=== PATIENT | female | born 1965 | race Two or more races ===

== ENCOUNTER 2018-09-16 01:56 | Inpatient (IN) | payer MEDICAID ==
[~2018-09-16] VITALS: Ht 160 cm; Wt 67.1 kg
[2018-09-16 01:56] VITALS: BP 138/97
[2018-09-16] MEDS ORDERED: NKM (01:58)
[2018-09-16] MEDS ORDERED: Sodium Chloride 500ML 500 ML IV ONE (02:06)
[2018-09-16] MEDS: Ipratropium 0.02% Inh Soln 2.5ml UD HHN SCH ×3 (02:14→03:11)
[2018-09-16] MEDS: Albuterol ud Inhalation HHN SCH ×3 (02:14→03:11)
[2018-09-16] MEDS ORDERED: Solu-MEDROL 125mg Inj IVP ONE (02:15)
[2018-09-16 02:29] LABS: BASOPHILS % (AUTO) 0.9 % (0.0-2.0); EOSINOPHILS % (AUTO) 1.3 % (0.0-3.0); HEMATOCRIT 36.2 % (37.0-47.0); HEMOGLOBIN 11.9 G/DL (12.0-16.0); LYMPHOCYTES % (AUTO) 18.5 % (20.0-45.0); MEAN CORPUSCULAR VOLUME 92 FL (80-99); MONOCYTES % (AUTO) 8.1 % (1.0-10.0); NEUTROPHILS % (AUTO) 71.2 % (45.0-75.0); PLATELET COUNT 337 K/UL (150-450); RED BLOOD COUNT 3.93 M/UL (4.20-5.40); RED CELL DISTRIBUTION WIDTH 13.4 % (11.6-14.8); WHITE BLOOD COUNT 6.4 K/UL (4.8-10.8)
[2018-09-16 02:38] LABS: ANION GAP 5 mmol/L (5-15); BLOOD UREA NITROGEN 15 mg/dL (7-18); CALCIUM 8.3 MG/DL (8.5-10.1); CARBON DIOXIDE 27 MMOL/L (21-32); CHLORIDE 109 MMOL/L (98-107); CREATININE 0.7 MG/DL (0.55-1.30); POTASSIUM 4.1 MMOL/L (3.5-5.1); SODIUM 141 MMOL/L (136-145)
[2018-09-16 02:43] LABS: APPEARANCE,URINE SLIGHTLY CLOUDY; BILIRUBIN, URINE NEGATIVE (NEGATIVE); GLUCOSE, URINE (UA) NEGATIVE (NEGATIVE); KETONES,URINE NEGATIVE (NEGATIVE); LEUKOCYTE ESTERASE ,URINE 3+ (NEGATIVE); NITRITE,URINE NEGATIVE (NEGATIVE); PH,URINE 5 (4.5-8.0); PROTEIN,URINE 2+ (NEGATIVE); UROBILINOGEN,URINE 1 MG/DL (0.0-1.0)
[2018-09-16 02:50] LABS: ALANINE AMINOTRANSFERASE 51 U/L (12-78); ALBUMIN 2.2 G/DL (3.4-5.0); ALBUMIN/GLOBULIN RATIO 0.6 (1.0-2.7); ALKALINE PHOSPHATASE 106 U/L (46-116); ASPARTATE AMINO TRANSFERASE 38 U/L (15-37); BILIRUBIN,TOTAL 0.2 MG/DL (0.2-1.0)
[2018-09-16 02:51] LABS: COLOR,URINE YELLOW
[2018-09-16] MEDS ORDERED: Ipratropium 0.02% Inh Soln 2.5ml UD HHN ONE (03:15)
[2018-09-16] MEDS ORDERED: Azithromycin 500 MG in NS 275 ML IV ONE (03:15)
[2018-09-16] MEDS ORDERED: cefTRIAXone 1 GM in NS 55 ML IVPB ONE (03:15)
[2018-09-16] MEDS ORDERED: Albuterol ud Inhalation HHN ONE (03:15)
[2018-09-16] MEDS ORDERED: SulfASALAZine 500MG tab ONE (04:10)
[2018-09-16] MEDS ORDERED: Azithromycin 250mg tab ORAL ONE (04:15)
[2018-09-16] MEDS ORDERED: metroNIDAZOLE 500mg tab ORAL ONE (04:30)
--- NOTE | 2018-09-16 04:39 | Emergency Room Report ---
History of Present Illness General Chief Complaint: Upper Respiratory Illness Source: Patient, EMS Present Illness HPI 53-year-old female presents ED for evaluation. Patient brought in by EMS for cough 2 weeks. Productive. Denies chest pain. Feel short of breath. [place] [address] Patient is a poor historian. Unable to elaborate her medical history. Denies smoking. Denies drug use. Unclear influenza status. No other aggravating relieving factors. Denies any other associated symptoms Allergies: Coded Allergies: No Known Allergies (Unverified , 09/16/18) Patient History Past Medical History: asthma, psych hx Past Surgical History: none Pertinent Family History: none Social History: Denies: smoking, alcohol use, drug use Last Menstrual Period: 5 years ago Now: No Immunizations: UTD Reviewed Nursing Documentation: PMH: Agreed; PSxH: Agreed Nursing Documentation-PMH Hx Asthma: Yes History Of Psychiatric Problem: Yes - schizophrenia Review of Systems All Other Systems: limited Physical Exam Vital Signs Date Time Temp Pulse Resp B/P (MAP) Pulse Ox O2 Delivery O2 Flow Rate FiO2 09/16/18 01:52 98.2 98 18 144/98 99 Room Air 09/16/18 01:56 10.0 09/16/18 02:13 100 Sp02 EP Interpretation: reviewed, normal General Appearance: alert, GCS 15, non-toxic, mild distress Head: normocephalic Eyes: bilateral eye normal inspection, bilateral eye PERRL ENT: normal ENT inspection Neck: full range of motion Respiratory: crackles, wheezing Cardiovascular #1: regular rate, rhythm, no edema Gastrointestinal: normal inspection Rectal: deferred Genitourinary: no CVA tenderness Musculoskeletal: normal inspection Neurologic: alert, oriented x3, responsive, motor strength/tone normal, sensory intact, speech normal Psychiatric: normal inspection Skin: normal inspection Lymphatic: normal inspection Medical Decision Making Diagnostic Impression: Primary Impression: CHF (congestive heart failure) Qualified Codes: I50.9 - Heart failure, unspecified Additional Impression: Pneumonia Qualified Codes: J18.9 - Pneumonia, unspecified organism ER Course Hospital Course 53-year-old F presenting to ED with respiratory distress, cough and crackles Differential diagnoses include: Pneumonia, CHF exacerbation, pneumothorax, fluid overload Clinical course Patient placed on stretcher. On coach wirer with hypoxia on room air and tachycardia. After initial history and physical, I ordered nebulizer treatments. I ordered labs, IV fluids, EKG, chest x-ray, blood cultures, UA. Patient placed on nasal cannula with O2 saturation improving Labs -no leukocytosis, hemoglobin/hematocrit stable, electrolytes ok, trop 0.195 , BNP 4967. UA+ bacteria + trich CXR - L upper lobe infiltrate EKG - NSR, no acute ishcemic changes interpreted by me Breathing improved after breathing treatments. Given antibiotics. Given Lasix Case discussed with Dr. Avina and he agreed to the patient to his service for further care and support I feel this is a highly complex case requiring extensive working including EKG/ Rhythm strip, Xray/CT/US, Blood/urine lab work, repeat exams while in ED, and administration of strong opiates/narcotics for pain control, admission to hospital or close patient follow up. Diagnosis - pneumonia, CHF Patient admitted to telemetry in serious condition Labs Test 09/16/18 02:14 09/16/18 02:35 09/16/18 03:04 White Blood Count 6.4 K/UL (4.8-10.8) Red Blood Count 3.93 M/UL (4.20-5.40) Hemoglobin 11.9 G/DL (12.0-16.0) Hematocrit 36.2 % (37.0-47.0) Mean Corpuscular Volume 92 FL (80-99) Mean Corpuscular Hemoglobin 30.1 PG (27.0-31.0) Mean Corpuscular Hemoglobin Concent 32.8 G/DL (32.0-36.0) Red Cell Distribution Width 13.4 % (11.6-14.8) Platelet Count 337 K/UL (150-450) Mean Platelet Volume 6.4 FL (6.5-10.1) Neutrophils (%) (Auto) 71.2 % (45.0-75.0) Lymphocytes (%) (Auto) 18.5 % (20.0-45.0) Monocytes (%) (Auto) 8.1 % (1.0-10.0) Eosinophils (%) (Auto) 1.3 % (0.0-3.0) Basophils (%) (Auto) 0.9 % (0.0-2.0) Sodium Level 141 MMOL/L (136-145) Potassium Level 4.1 MMOL/L (3.5-5.1) Chloride Level 109 MMOL/L (98-107) Carbon Dioxide Level 27 MMOL/L (21-32) Anion Gap 5 mmol/L (5-15) Blood Urea Nitrogen 15 mg/dL (7-18) Creatinine 0.7 MG/DL (0.55-1.30) Estimat Glomerular Filtration Rate > 60 mL/min (>60) Glucose Level 113 MG/DL (74-106) Calcium Level 8.3 MG/DL (8.5-10.1) Total Bilirubin 0.2 MG/DL (0.2-1.0) Aspartate Amino Transf (AST/SGOT) 38 U/L (15-37) Alanine Aminotransferase (ALT/SGPT) 51 U/L (12-78) Alkaline Phosphatase 106 U/L (46-116) Troponin I 0.195 ng/mL (0.000-0.056) Pro-B-Type Natriuretic Peptide 4967 pg/mL (0-125) Total Protein 6.0 G/DL (6.4-8.2) Albumin 2.2 G/DL (3.4-5.0) Globulin 3.8 g/dL Albumin/Globulin Ratio 0.6 (1.0-2.7) Urine Color Yellow Urine Appearance Slightly cloudy Urine pH 5 (4.5-8.0) Urine Specific [place] 1.025 (1.005-1.035) Urine Protein 2+ (NEGATIVE) Urine Glucose (UA) Negative (NEGATIVE) Urine Ketones Negative (NEGATIVE) Urine Blood 2+ (NEGATIVE) Urine Nitrite Negative (NEGATIVE) Urine Bilirubin Negative (NEGATIVE) Urine Urobilinogen 1 MG/DL (0.0-1.0) Urine Leukocyte Esterase 3+ (NEGATIVE) Urine RBC 2-4 /HPF (0 - 2) Urine WBC 15-20 /HPF (0 - 2) Urine Squamous Epithelial Cells Moderate /LPF (NONE/OCC) Urine Calcium Oxalate Crystals Occasional /LPF (NONE) Urine Bacteria Moderate /HPF (NONE) Urine Trichomonas Few /HPF (NONE) Arterial Blood pH 7.360 (7.350-7.450) Arterial Blood Partial Pressure CO2 45.3 mmHg (35.0-45.0) Arterial Blood Partial Pressure O2 129.0 mmHg (75.0-100.0) Arterial Blood HCO3 25.0 mmol/L (22.0-26.0) Arterial Blood Oxygen Saturation 98.5 % (95-100) Arterial Blood Base Excess -0.7 (-2-2) Master Test Positive EKG Diagnostic Results Rate: normal Rhythm: NSR ST Segments: no acute changes ASA given to the pt in ED: No Rhythm Strip Diag. Results EP Interpretation: yes Rhythm: NSR, no PVC's, no ectopy Chest X-Ray Diagnostic Results Chest X-Ray Diagnostic Results : Chest X-Ray Ordered: Yes # of Views/Limited/Complete: 1 View Indication: Shortness of Breath EP Interpretation: Yes Interpretation: no effusion, no pneumothorax, other - VRAUN infiltrate Impression: Other - pneumonia Electronically Signed by: Electronically signed by Oskar Burns MD Last Vital Signs Date Time Temp Pulse Resp B/P (MAP) Pulse Ox O2 Delivery O2 Flow Rate FiO2 09/16/18 04:25 118 20 100 Room Air 21 09/16/18 02:14 15.0 09/16/18 01:56 98.2 138/97 Status: improved Disposition: ADMITTED INPATIENT Condition: Serious Referrals: [facility],REFERRING (PCP) Oskar Burns MD Sep 16, 2018 04:39
[2018-09-16] MEDS ORDERED: Albuterol/Ipratropium 3ml neb HHN PRN (07:45)
[2018-09-16] MEDS ORDERED: Morphine Sulfate 4mg/ml Inj (IV/IM USE ONLY) IVP PRN (07:45)
[2018-09-16 08:00] VITALS: BP 120/74
[2018-09-16] MEDS: Metoprolol 25mg tab ORAL SCH ×2 (09:09→20:47)
[2018-09-16] MEDS: Heparin 5000 units/ml inj SUBQ SCH ×2 (09:16→20:48)
--- NOTE | 2018-09-16 10:04 | History and Physical ---
History of Present Illness General Date patient seen: Sep 16, 2018 Time patient seen: 09:52 Reason for Hospitalization: Upper Respiratory Illness Present Illness HPI 53-year-old female presents for coughs for around 2 weeks. States she has productive coughs, denies any chest pain but has mild shortness of breath. Patient has h/o schizophrenia, states she follows with a psychiatrist but does not take any medications. Patient currently speaking tangentially and very difficult to redirect patient continuously. Patient does not take any medications at home Patient is a very poor historian likely due to psychiatric illness Social hx: reviewed, denies smoking, drug use or alcohol use fam hx reviewed, denies any sig past fam hx that she is aware of code status reviewed, would like to remain full code Allergies: Coded Allergies: No Known Allergies (Unverified , 09/16/18) Medication History Scheduled No Known Medications* (NKM - No Known Medications*), 0 ., (Reported) Patient History History Provided By: Patient Healthcare decision maker Resuscitation status Full Code Advanced Directive on File Physical Exam General Appearance: no apparent distress Lines, tubes and drains: peripheral HEENT: normocephalic, atraumatic, anicteric Neck: non-tender, normal alignment Respiratory/Chest: chest wall non-tender, lungs clear, normal breath sounds, no respiratory distress, no accessory muscle use Cardiovascular/Chest: normal peripheral pulses, normal rate, regular rhythm Abdomen: normal bowel sounds, non tender, soft, no organomegaly, no mass Extremities: normal range of motion, non-tender, normal inspection, no calf tenderness Skin Exam: normal pigmentation, warm/dry 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, no motor/sensory deficits, alert, oriented x 3 Last 24 Hour Vital Signs Date Time Temp Pulse Resp B/P (MAP) Pulse Ox O2 Delivery O2 Flow Rate FiO2 09/16/18 09:09 91 120/74 09/16/18 08:00 98.1 91 18 120/74 (89) 98 09/16/18 05:33 102 09/16/18 05:22 Room Air 09/16/18 05:10 98.2 100 20 135/91 99 Nasal Cannula 2.0 09/16/18 04:25 118 20 100 Room Air 21 09/16/18 04:14 110 20 99 Room Air 21 09/16/18 03:13 114 20 100 Room Air 21 09/16/18 03:12 112 20 100 Room Air 21 09/16/18 02:48 110 21 100 Room Air 09/16/18 02:31 110 24 100 Room Air 21 09/16/18 02:29 105 24 100 Room Air 09/16/18 02:14 98 21 100 Non-Rebreather 15.0 100 09/16/18 02:13 98 21 Non-Rebreather 15.0 100 09/16/18 01:56 98.2 101 18 138/97 96 Non-Rebreather 10.0 09/16/18 01:56 101 18 Non-Rebreather 10.0 09/16/18 01:52 98.2 98 18 144/98 99 Room Air Intake and Output 09/15/18 09/16/18 18:59 06:59 Intake Total 1555 ml Balance 1555 ml IV Total 1555 ml Laboratory Tests Test 09/16/18 02:14 09/16/18 02:35 09/16/18 03:04 White Blood Count 6.4 K/UL (4.8-10.8) Red Blood Count 3.93 M/UL (4.20-5.40) L Hemoglobin 11.9 G/DL (12.0-16.0) L Hematocrit 36.2 % (37.0-47.0) L Mean Corpuscular Volume 92 FL (80-99) Mean Corpuscular Hemoglobin 30.1 PG (27.0-31.0) Mean Corpuscular Hemoglobin Concent 32.8 G/DL (32.0-36.0) Red Cell Distribution Width 13.4 % (11.6-14.8) Platelet Count 337 K/UL (150-450) Mean Platelet Volume 6.4 FL (6.5-10.1) L Neutrophils (%) (Auto) 71.2 % (45.0-75.0) Lymphocytes (%) (Auto) 18.5 % (20.0-45.0) L Monocytes (%) (Auto) 8.1 % (1.0-10.0) Eosinophils (%) (Auto) 1.3 % (0.0-3.0) Basophils (%) (Auto) 0.9 % (0.0-2.0) Sodium Level 141 MMOL/L (136-145) Potassium Level 4.1 MMOL/L (3.5-5.1) Chloride Level 109 MMOL/L (98-107) H Carbon Dioxide Level 27 MMOL/L (21-32) Anion Gap 5 mmol/L (5-15) Blood Urea Nitrogen 15 mg/dL (7-18) Creatinine 0.7 MG/DL (0.55-1.30) Estimat Glomerular Filtration Rate > 60 mL/min (>60) Glucose Level 113 MG/DL (74-106) H Calcium Level 8.3 MG/DL (8.5-10.1) L Total Bilirubin 0.2 MG/DL (0.2-1.0) Aspartate Amino Transf (AST/SGOT) 38 U/L (15-37) H Alanine Aminotransferase (ALT/SGPT) 51 U/L (12-78) Alkaline Phosphatase 106 U/L (46-116) Troponin I 0.195 ng/mL (0.000-0.056) Pro-B-Type Natriuretic Peptide 4967 pg/mL (0-125) H Total Protein 6.0 G/DL (6.4-8.2) L Albumin 2.2 G/DL (3.4-5.0) L Globulin 3.8 g/dL Albumin/Globulin Ratio 0.6 (1.0-2.7) L Urine Color Yellow Urine Appearance Slightly cloudy Urine pH 5 (4.5-8.0) Urine Specific [place] 1.025 (1.005-1.035) Urine Protein 2+ (NEGATIVE) H Urine Glucose (UA) Negative (NEGATIVE) Urine Ketones Negative (NEGATIVE) Urine Blood 2+ (NEGATIVE) H Urine Nitrite Negative (NEGATIVE) Urine Bilirubin Negative (NEGATIVE) Urine Urobilinogen 1 MG/DL (0.0-1.0) H Urine Leukocyte Esterase 3+ (NEGATIVE) H Urine RBC 2-4 /HPF (0 - 2) H Urine WBC 15-20 /HPF (0 - 2) H Urine Squamous Epithelial Cells Moderate /LPF (NONE/OCC) H Urine Calcium Oxalate Crystals Occasional /LPF (NONE) Urine Bacteria Moderate /HPF (NONE) H Urine Trichomonas Few /HPF (NONE) H Arterial Blood pH 7.360 (7.350-7.450) Arterial Blood Partial Pressure CO2 45.3 mmHg (35.0-45.0) H Arterial Blood Partial Pressure O2 129.0 mmHg (75.0-100.0) H Arterial Blood HCO3 25.0 mmol/L (22.0-26.0) Arterial Blood Oxygen Saturation 98.5 % (95-100) Arterial Blood Base Excess -0.7 (-2-2) Master Test Positive Height (Feet): 5 Height (Inches): 3.00 Weight (Pounds): 148 Medications Current Medications Medications (Trade) Dose Ordered Sig/Elier Route PRN Reason Start Time Stop Time Status Last Admin Dose Admin Albuterol/ Ipratropium (Albuterol/ Ipratropium) 3 ml Q6H PRN HHN Shortness of Breath 09/16/18 07:45 09/21/18 07:44 Aspirin (ASA) 325 mg DAILY ORAL 09/16/18 09:00 10/16/18 08:59 09/16/18 09:09 Furosemide (Lasix) 40 mg Q8H IV 09/16/18 08:00 10/16/18 07:59 09/16/18 09:09 Heparin Sodium (Porcine) (Heparin 5000 units/ml) 5,000 units EVERY 12 HOURS SUBQ 09/16/18 09:00 10/16/18 08:59 09/16/18 09:16 Levofloxacin 150 ml @ 100 mls/hr Q24H IVPB 09/16/18 09:00 09/23/18 08:59 09/16/18 09:09 Metoprolol Tartrate (Lopressor) 25 mg Q12HR ORAL 09/16/18 09:00 10/16/18 08:59 09/16/18 09:09 Morphine Sulfate (Morphine Sulfate) 1 mg Q6H PRN IVP For Pain 09/16/18 07:45 09/23/18 07:44 Sodium Chloride 1,000 ml @ 100 mls/hr Q10H IV 09/16/18 03:15 10/16/18 03:14 09/16/18 03:28 Assessment/Plan Problem List: (1) NSTEMI (non-ST elevated myocardial infarction) ICD Codes: I21.4 - Non-ST elevation (NSTEMI) myocardial infarction SNOMED: 165469904 (2) CAP (community acquired pneumonia) ICD Codes: J18.9 - Pneumonia, unspecified organism SNOMED: 130924653 (3) CHF (congestive heart failure) ICD Codes: I50.9 - Heart failure, unspecified SNOMED: 28372313 Qualifiers: Qualified Codes: I50.9 - Heart failure, unspecified (4) Acute exacerbation of CHF (congestive heart failure) ICD Codes: I50.9 - Heart failure, unspecified SNOMED: 65013128 (5) SOB (shortness of breath) ICD Codes: R06.02 - Shortness of breath SNOMED: 015725565 (6) Schizophrenia ICD Codes: F20.9 - Schizophrenia, unspecified SNOMED: 64378837 Status: stable Assessment/Plan Shortness of breath Community aquired Pneumonia - cxr reviewed, VARUN infiltrate noted - started on lvq 750 IV qday - bcx sent - breathing tx - improving Acute systolic CHF exacerbation - likely systolic type - TTE pending - trop x 1 elevated at 0.196 - trend trop x 3 - elevated bnp in 4000s - cards consulted - iv lasix - duonebs NSTEMI - type II nstemi, due to demand ischemia from chf exacerbation and cap - continue caridioprotective meds - asa, statin, bb, lasix - concerns for drug abuse, pending UDS Schizophrenia - not on any medications - psych consult diet: cardiac DVT Prophylaxis: SCD, HSQ Code Status: Full Hospital Classification Declaration: Based on this initial evaluation, and depending on the patient's clinical course, I anticipate that this patient will require hospitalization for [] days for [] and close respiratory/hemodynamic monitoring. Disposition: Once the patient is stable to leave the hospital, I anticipate the patient will likely be discharged to the following environment: home with HH vs SNF I spent [] minutes on this patient's case, and [] minutes were dedicated to counseling and/or care coordination. Discussed with patient/family, nursing staff, SW/CM, [] regarding clinical status, treatment course, and disposition planning. Time of note may not reflect time of encounter. Silvana Gill MD Sep 16, 2018 10:04
[2018-09-16 12:00] VITALS: BP 131/84
[2018-09-16 16:00] VITALS: BP 112/82
--- NOTE | 2018-09-16 17:27 | Consultation ---
History of Present Illness General Date patient seen: Sep 16, 2018 Time patient seen: 17:22 Chief Complaint: Upper Respiratory Illness Present Illness HPI 53-year-old female presents for cough and shortness of breath. Patient is homeless. She is agitated, she refused blood draws and echocardiogram. She has hx of schizophrenia. She does not take any medications. She is a poor historian. Troponin elevated, BNP elevated. She is on room air. Allergies: Coded Allergies: No Known Allergies (Unverified , 09/16/18) Medication History Scheduled No Known Medications* (NKM - No Known Medications*), 0 ., (Reported) Patient History Healthcare decision maker Resuscitation status Full Code Advanced Directive on File Review of Systems Constitutional: Reports: no symptoms Eye: Reports: no symptoms Respiratory: Reports: shortness of breath Cardiovascular: Reports: no symptoms Gastrointestinal: Reports: no symptoms Genitourinary: Reports: no symptoms Musculoskeletal: Reports: no symptoms Skin: Reports: no symptoms Psychiatric: Reports: no symptoms Neurological: Reports: no symptoms Endocrine: Reports: no symptoms Hematologic/Lymphatic: Reports: no symptoms Physical Exam General Appearance: no apparent distress, confused, mild distress Lines, tubes and drains: peripheral HEENT: normocephalic, atraumatic, mucous membranes moist, PERRL Neck: non-tender, normal alignment, supple, normal inspection Respiratory/Chest: chest wall non-tender, lungs clear, normal breath sounds Cardiovascular/Chest: normal peripheral pulses, normal rate, regular rhythm Abdomen: normal bowel sounds, non tender, soft, no organomegaly, no mass Extremities: normal range of motion, non-tender, normal inspection, no calf tenderness, normal capillary refill, non-pitting Skin Exam: normal pigmentation, warm/dry, cyanotic 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, depressed affect Last 24 Hour Vital Signs Date Time Temp Pulse Resp B/P (MAP) Pulse Ox O2 Delivery O2 Flow Rate FiO2 09/16/18 16:00 98.5 97 18 112/82 (92) 98 09/16/18 15:43 105 09/16/18 12:00 98.1 90 20 131/84 (100) 100 09/16/18 11:47 95 09/16/18 09:09 91 120/74 09/16/18 09:00 Room Air 09/16/18 08:00 98.1 91 18 120/74 (89) 98 09/16/18 07:51 91 09/16/18 05:33 102 09/16/18 05:22 Room Air 09/16/18 05:10 98.2 100 20 135/91 99 Nasal Cannula 2.0 09/16/18 04:25 118 20 100 Room Air 21 09/16/18 04:14 110 20 99 Room Air 21 09/16/18 03:13 114 20 100 Room Air 21 09/16/18 03:12 112 20 100 Room Air 21 09/16/18 02:48 110 21 100 Room Air 09/16/18 02:31 110 24 100 Room Air 21 09/16/18 02:29 105 24 100 Room Air 09/16/18 02:14 98 21 100 Non-Rebreather 15.0 100 09/16/18 02:13 98 21 Non-Rebreather 15.0 100 09/16/18 01:56 98.2 101 18 138/97 96 Non-Rebreather 10.0 09/16/18 01:56 101 18 Non-Rebreather 10.0 09/16/18 01:52 98.2 98 18 144/98 99 Room Air Intake and Output 09/15/18 09/16/18 19:00 07:00 Intake Total 1555 ml Balance 1555 ml IV Total 1555 ml Laboratory Tests Test 09/16/18 02:14 09/16/18 02:35 09/16/18 03:04 09/16/18 10:05 White Blood Count 6.4 K/UL (4.8-10.8) Red Blood Count 3.93 M/UL (4.20-5.40) L Hemoglobin 11.9 G/DL (12.0-16.0) L Hematocrit 36.2 % (37.0-47.0) L Mean Corpuscular Volume 92 FL (80-99) Mean Corpuscular Hemoglobin 30.1 PG (27.0-31.0) Mean Corpuscular Hemoglobin Concent 32.8 G/DL (32.0-36.0) Red Cell Distribution Width 13.4 % (11.6-14.8) Platelet Count 337 K/UL (150-450) Mean Platelet Volume 6.4 FL (6.5-10.1) L Neutrophils (%) (Auto) 71.2 % (45.0-75.0) Lymphocytes (%) (Auto) 18.5 % (20.0-45.0) L Monocytes (%) (Auto) 8.1 % (1.0-10.0) Eosinophils (%) (Auto) 1.3 % (0.0-3.0) Basophils (%) (Auto) 0.9 % (0.0-2.0) Sodium Level 141 MMOL/L (136-145) Potassium Level 4.1 MMOL/L (3.5-5.1) Chloride Level 109 MMOL/L (98-107) H Carbon Dioxide Level 27 MMOL/L (21-32) Anion Gap 5 mmol/L (5-15) Blood Urea Nitrogen 15 mg/dL (7-18) Creatinine 0.7 MG/DL (0.55-1.30) Estimat Glomerular Filtration Rate > 60 mL/min (>60) Glucose Level 113 MG/DL (74-106) H Calcium Level 8.3 MG/DL (8.5-10.1) L Total Bilirubin 0.2 MG/DL (0.2-1.0) Aspartate Amino Transf (AST/SGOT) 38 U/L (15-37) H Alanine Aminotransferase (ALT/SGPT) 51 U/L (12-78) Alkaline Phosphatase 106 U/L (46-116) Troponin I 0.195 ng/mL (0.000-0.056) 0.169 ng/mL (0.000-0.056) Pro-B-Type Natriuretic Peptide 4967 pg/mL (0-125) H Total Protein 6.0 G/DL (6.4-8.2) L Albumin 2.2 G/DL (3.4-5.0) L Globulin 3.8 g/dL Albumin/Globulin Ratio 0.6 (1.0-2.7) L Urine Color Yellow Urine Appearance Slightly cloudy Urine pH 5 (4.5-8.0) Urine Specific [place] 1.025 (1.005-1.035) Urine Protein 2+ (NEGATIVE) H Urine Glucose (UA) Negative (NEGATIVE) Urine Ketones Negative (NEGATIVE) Urine Blood 2+ (NEGATIVE) H Urine Nitrite Negative (NEGATIVE) Urine Bilirubin Negative (NEGATIVE) Urine Urobilinogen 1 MG/DL (0.0-1.0) H Urine Leukocyte Esterase 3+ (NEGATIVE) H Urine RBC 2-4 /HPF (0 - 2) H Urine WBC 15-20 /HPF (0 - 2) H Urine Squamous Epithelial Cells Moderate /LPF (NONE/OCC) H Urine Calcium Oxalate Crystals Occasional /LPF (NONE) Urine Bacteria Moderate /HPF (NONE) H Urine Trichomonas Few /HPF (NONE) H Arterial Blood pH 7.360 (7.350-7.450) Arterial Blood Partial Pressure CO2 45.3 mmHg (35.0-45.0) H Arterial Blood Partial Pressure O2 129.0 mmHg (75.0-100.0) H Arterial Blood HCO3 25.0 mmol/L (22.0-26.0) Arterial Blood Oxygen Saturation 98.5 % (95-100) Arterial Blood Base Excess -0.7 (-2-2) Master Test Positive Lactic Acid Level 4.00 mmol/L (0.4-2.0) H Height (Feet): 5 Height (Inches): 3.00 Weight (Pounds): 148 Medications Current Medications Medications (Trade) Dose Ordered Sig/Elier Route PRN Reason Start Time Stop Time Status Last Admin Dose Admin Albuterol/ Ipratropium (Albuterol/ Ipratropium) 3 ml Q6H PRN HHN Shortness of Breath 09/16/18 07:45 09/21/18 07:44 Aspirin (ASA) 325 mg DAILY ORAL 09/16/18 09:00 10/16/18 08:59 09/16/18 09:09 Furosemide (Lasix) 40 mg Q8H IV 09/16/18 08:00 10/16/18 07:59 09/16/18 16:08 Heparin Sodium (Porcine) (Heparin 5000 units/ml) 5,000 units EVERY 12 HOURS SUBQ 09/16/18 09:00 10/16/18 08:59 09/16/18 09:16 Levofloxacin 150 ml @ 100 mls/hr Q24H IVPB 09/16/18 09:00 09/23/18 08:59 09/16/18 09:09 Metoprolol Tartrate (Lopressor) 25 mg Q12HR ORAL 09/16/18 09:00 10/16/18 08:59 09/16/18 09:09 Morphine Sulfate (Morphine Sulfate) 1 mg Q6H PRN IVP For Pain 09/16/18 07:45 12/22/18 07:44 Sodium Chloride 1,000 ml @ 100 mls/hr Q10H IV 09/16/18 03:15 10/16/18 03:14 09/16/18 03:28 Assessment/Plan Status: stable Assessment/Plan Assessment (1) NSTEMI (non-ST elevated myocardial infarction) (2) CAP (community acquired pneumonia) (3) CHF (congestive heart failure) (4) Acute exacerbation of CHF (congestive heart failure) (5) SOB (shortness of breath) (6) Schizophrenia (7) Elevated troponin (8) Elevated BNP Echocardiogram to evaluate LV function Mild diuresis Trend troponin No indication for cath Outpatient stress test Follow up cultures Empiric antibiotics -Aspirin -Statin -beta blockrs -psych consult PremsoDerek anderson MD Sep 16, 2018 17:27
[2018-09-16 20:00] VITALS: BP 138/93
[2018-09-17] VITALS: BP 124/89
[2018-09-17 04:00] VITALS: BP 105/74
[2018-09-17] MEDS: Metoprolol 25mg tab ORAL SCH (09:00)
[2018-09-17] MEDS: Heparin 5000 units/ml inj SUBQ SCH (09:00)
[2018-09-17] MEDS ORDERED: ASPIRIN-LOW81 MG ORAL (09:35)
[2018-09-17] MEDS ORDERED: LISINOPRIL10 MG ORAL (09:35)
[2018-09-17] MEDS ORDERED: FUROSEMIDE40 MG ORAL (09:35)
[2018-09-17] MEDS ORDERED: LOPRESSOR25 M1 ORAL (09:35)
[2018-09-17] MEDS ORDERED: LEVOFLOXACIN750 MG ORAL (09:35)
[2018-09-17] MEDS ORDERED: LIPITOR80 MG ORAL (09:35)
--- NOTE | 2018-09-17 09:38 | Discharge Instructions ---
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 Silvana Gill MD Sep 17, 2018 09:38
--- NOTE | 2018-09-17 09:43 | Discharge Summary ---
Discharge Summary Hospital Course Date of Admission Sep 16, 2018 at 04:01 Date of Discharge 09/17/18 Admitting Diagnosis Congestive heart failure, shortness of breath HPI Arelis Mercado is a 53 year old female who was admitted on Sep 16, 2018 at 04 :01 for Congestive Heart Failure, Shortness Of Breath, denies any chest pain on admit. Improved with diuresis. patient currently has been refusing medical care. She is currently asymptomatic, refused TTE and repeat labs Patient has h/o schizophrenia, states she follows with a psychiatrist but does not take any medications. Patient is a very poor historian likely due to psychiatric illness patient to be dc'd back to [facility], they have psychiatry that will follow up with her per discussion Physical Exam: General Appearance: no apparent distress Lines, tubes and drains: peripheral HEENT: normocephalic, atraumatic, anicteric Neck: non-tender, normal alignment Respiratory/Chest: chest wall non-tender, lungs clear, normal breath sounds, no respiratory distress, no accessory muscle use Cardiovascular/Chest: normal peripheral pulses, normal rate, regular rhythm Abdomen: normal bowel sounds, non tender, soft, no organomegaly, no mass Extremities: normal range of motion, non-tender, normal inspection, no calf tenderness Skin Exam: normal pigmentation, warm/dry 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 grossly normal, no motor/sensory deficits, alert, oriented x 3 Hospital Course Shortness of breath Community aquired Pneumonia - cxr reviewed, VARUN infiltrate noted - LVQ qday - breathing tx - improving Acute systolic CHF exacerbation - refused TTE - stable now - dc home with meds NSTEMI - type II nstemi, due to demand ischemia from chf exacerbation and cap - continue caridioprotective meds - asa, statin, bb, lasix Schizophrenia - not on any medications - psych consult Code Status: Full Disposition: back to [facility] I spent 40 minutes on this patient's case, counseling and/or care coordination of discharge. Time of note may not reflect time of encounter. 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
[2018-09-17 10:13] LABS: BASOPHILS % (AUTO) 0.7 % (0.0-2.0); HEMATOCRIT 35.6 % (37.0-47.0); HEMOGLOBIN 11.6 G/DL (12.0-16.0); LYMPHOCYTES % (AUTO) 21.9 % (20.0-45.0); MEAN CORPUSCULAR VOLUME 91 FL (80-99); MONOCYTES % (AUTO) 9.1 % (1.0-10.0); NEUTROPHILS % (AUTO) 67.4 % (45.0-75.0); PLATELET COUNT 333 K/UL (150-450); RED BLOOD COUNT 3.92 M/UL (4.20-5.40); RED CELL DISTRIBUTION WIDTH 13.5 % (11.6-14.8); WHITE BLOOD COUNT 7.3 K/UL (4.8-10.8)
[2018-09-17 10:27] LABS: ANION GAP 5 mmol/L (5-15); BLOOD UREA NITROGEN 20 mg/dL (7-18); CALCIUM 8.6 MG/DL (8.5-10.1); CARBON DIOXIDE 32 MMOL/L (21-32); CHLORIDE 103 MMOL/L (98-107); CREATININE 0.8 MG/DL (0.55-1.30); POTASSIUM 4.1 MMOL/L (3.5-5.1); SODIUM 140 MMOL/L (136-145)
--- NOTE | 2018-09-19 14:54 | Cardiology Report ---
APPROVED REPORT EKG Measurement Heart [id number] [id number] Sinus tachycardia. Septal infarct, age undetermined Abnormal ECG
== END 2018-09-17 11:30 | disposition home or self-care (01) | DRG 190 ==
LOC: EDBD 01:56 → EMR 02:23 → 2E 04:01 → EDBEDREQ 04:13 → 2E 05:21
DX: I21.4 Non-ST elevation (NSTEMI) myocardial infarction (principal); I50.23 Acute on chronic systolic (congestive) heart failure; J18.9 Pneumonia, unspecified organism; F20.9 Schizophrenia, unspecified; Z59.0 Homelessness
CPT/HCPCS: 36415; 36600; 71045; 80048; 80053; 81003; 82803; 83036; 83605; 83880; 84484; 85025; 86710; 87040; 87081; 87086; 87181; 93005; 94640; 94664; 96361; 96365; 96375; 99285